=== PATIENT | male | born 1960 | race Caucasian/White ===

== ENCOUNTER 2022-01-15 09:41 | Inpatient (IN) ==
[2022-01-15] MEDS ORDERED: NITROGLYCERIN SL 0.4 MG TABLET SL ONE (09:55)
[2022-01-15] MEDS ORDERED: ASPIRIN 325 MG TABLET ONE (09:57)
[2022-01-15] MEDS ORDERED: ASPIRIN 325 MG TABLET PO STA (09:58)
[2022-01-15] MEDS ORDERED: HEPARIN 5,000 UNIT/1 ML VIAL IV ONE (09:58)
[2022-01-15] MEDS ORDERED: HEPARIN 5,000 UNIT/1 ML VIAL ONE ×2 (09:59→10:00)
[2022-01-15] MEDS ORDERED: MORPHINE 2 MG/1 ML SYRINGE ONE (09:59)
[2022-01-15] MEDS ORDERED: NITROGLYCERIN DRIP 0 MG/0 ML BOTTLE IV ONE (10:01)
[2022-01-15] MEDS ORDERED: NITROGLYCERIN DRIP 50 MG/250 ML BOTTLE IV ONE (10:06)
[2022-01-15] MEDS ORDERED: VERAPAMIL 5 MG/2 ML VIAL ONE (10:06)
[2022-01-15] MEDS ORDERED: fentaNYL 100 MCG/2 ML VIAL ONE (10:06)
[2022-01-15] MEDS ORDERED: HEPARIN/NACL 0.9% 2 UNITS/ML 2,000 UNIT/1,000 ML BAG IV ONE (10:06)
[2022-01-15] MEDS ORDERED: MIDAZOLAM 2 MG/2 ML VIAL ONE ×2 (10:06→10:24)
[2022-01-15 10:10] LABS: Basophils % 0.6 % (0.0-0.8); Eosinophils # 0.1 10*3/uL (0.0-0.87); Eosinophils % 2.2 % (0.00-10.9); Hematocrit 54.6 VOL% (42.0-52.0); Hemoglobin 18.5 GM/DL (14.0-18.0); Immature Granulocytes % 0.3 %; Immature Granulocytes Absolute 0.01 #; Lymphocytes % 30.9 % (21.2-54.2); Mean Corpuscular HGB Conc 33.9 GM/DL (32-36); Mean Corpuscular Volume 83.6 FL (87-102); Mean Platelet Volume 11.1 FL (9.6-12.0); Monocytes # 0.4 10*3/uL (0.11-0.8); Monocytes % 11.5 % (1.7-12.7); Neutrophils % 54.5 % (38.7-73.9); Platelet Count 71 T/CUMM (130-400); Red Blood Count 6.53 MC/CUMM (3.8-5.5); Red Cell Distribution Width 18.6 % (9.3-17.3); White Blood Count 3.1 T/CUMM (4-12)
[2022-01-15] MEDS ORDERED: MAGNESIUM SULF RIDER 2 GM/50 ML PREMIX IV PRN (10:20)
[2022-01-15] MEDS ORDERED: MAGNESIUM SULF RIDER 4 GM/100 ML PREMIX IV PRN (10:20)
[2022-01-15] MEDS ORDERED: POTASSIUM CHLORIDE 20 MEQ TABLET PO PRN (10:21)
[2022-01-15] MEDS ORDERED: POTASSIUM CHLORIDE RIDER 10 MEQ/100 ML PREMIX IV PRN (10:22)
[2022-01-15 10:30] LABS: Albumin 3.9 G/DL (3.4-5.0); Bilirubin,Total 3.7 MG/DL (0.20-1.00); Calcium 9.7 MG/DL (8.5-10.1); Potassium 4.1 MMOL/L (3.5-5.1); Total Protein 7.7 G/DL (6.4-8.2)
[2022-01-15] MEDS ORDERED: MORPHINE 2 MG/1 ML SYRINGE IV STA (10:33)
[2022-01-15] MEDS ORDERED: hydrALAZINE 20 MG/1 ML VIAL ONE (10:36)
[2022-01-15 10:41] LABS: Platelet Estimate Adequate
[2022-01-15] MEDS ORDERED: NITROGLYCERIN DRIP 50 MG/250 ML BOTTLE IV PRN (10:42)
[2022-01-15 10:49] LABS: Thyroid Stimulating Hormone 1.87 uIU/ml (0.358-3.74)
[2022-01-15] MEDS ORDERED: TICAGRELOR 90 MG TABLET ONE (10:50)
[2022-01-15] MEDS ORDERED: ONDANSETRON 4 MG/2 ML VIAL IV PRN (11:11)
[2022-01-15] MEDS ORDERED: hydrALAZINE 20 MG/1 ML VIAL IV PRN (11:15)
[2022-01-15] MEDS ORDERED: MORPHINE 2 MG/1 ML SYRINGE IV PRN (11:16)
[2022-01-15] MEDS ORDERED: SODIUM CHLORIDE 0.9% 1,000 ML IV SCH (11:30)
[2022-01-15 11:33] LABS: Risk Ratio 3.5; VLDL Cholesterol 16.4 MG/DL
[2022-01-15] MEDS: VALSARTAN 80 MG TABLET PO SCH (12:01)
[2022-01-15] MEDS: METOPROLOL TARTRATE 25 MG TABLET PO SCH ×2 (12:02→22:37)
[2022-01-15 12:16] LABS: Basophils % 0.2 % (0.0-0.8); Eosinophils % 0.6 % (0.00-10.9); Hematocrit 51.5 VOL% (42.0-52.0); Hemoglobin 17.7 GM/DL (14.0-18.0); Immature Granulocytes % 1.5 %; Immature Granulocytes Absolute 0.07 #; Lymphocytes # 0.5 10*3/uL (1.4-4.0); Lymphocytes % 9.6 % (21.2-54.2); Mean Corpuscular HGB Conc 34.4 GM/DL (32-36); Mean Corpuscular Volume 83.2 FL (87-102); Mean Platelet Volume 10.7 FL (9.6-12.0); Monocytes # 0.3 10*3/uL (0.11-0.8); Neutrophils % 82.1 % (38.7-73.9); Platelet Count 66 T/CUMM (130-400); Red Blood Count 6.19 MC/CUMM (3.8-5.5); Red Cell Distribution Width 18.4 % (9.3-17.3); White Blood Count 4.8 T/CUMM (4-12)
[2022-01-15] MEDS ORDERED: VALSARTAN 80 MG TABLET PO ONE (14:29)
[2022-01-15] MEDS ORDERED: SIMVASTATIN 20 MG TABLET PO SCH (21:00)
[2022-01-15] MEDS ORDERED: ROSUVASTATIN 20 MG TABLET PO SCH (21:00)
[2022-01-15] MEDS ORDERED: ATORVASTATIN 80 MG TABLET PO SCH (21:00)
[2022-01-15] MEDS: VITAMIN E 400 UNIT CAPSULE PO SCH (21:55)
[2022-01-15] MEDS: TICAGRELOR 90 MG TABLET PO SCH (21:55)
[2022-01-15] MEDS: FAMOTIDINE 20 MG TABLET PO SCH (21:56)
[2022-01-16] MEDS: METOPROLOL TARTRATE 25 MG TABLET PO SCH ×3 (01:29→20:17)
[2022-01-16 06:33] LABS: Basophils % 0.2 % (0.0-0.8); Eosinophils # 0.1 10*3/uL (0.0-0.87); Eosinophils % 1.2 % (0.00-10.9); Hemoglobin 17.7 GM/DL (14.0-18.0); Immature Granulocytes % 0.2 %; Immature Granulocytes Absolute 0.01 #; Lymphocytes # 0.8 10*3/uL (1.4-4.0); Lymphocytes % 13.7 % (21.2-54.2); Mean Corpuscular Volume 84.3 FL (87-102); Mean Platelet Volume 10.9 FL (9.6-12.0); Monocytes # 0.7 10*3/uL (0.11-0.8); Monocytes % 12.1 % (1.7-12.7); Neutrophils % 72.6 % (38.7-73.9); Platelet Count 70 T/CUMM (130-400); Red Blood Count 6.17 MC/CUMM (3.8-5.5); Red Cell Distribution Width 18.4 % (9.3-17.3); White Blood Count 5.6 T/CUMM (4-12)
[2022-01-16 07:12] LABS: Albumin 3.6 G/DL (3.4-5.0); Bilirubin,Total 5.4 MG/DL (0.20-1.00); Osmolality,Calculated 272.8 MOS/KG (273-304); Total Protein 6.9 G/DL (6.4-8.2)
[2022-01-16 08:03] LABS: Platelet Estimate Decreased; Target Cells Slight
[2022-01-16] MEDS: VALSARTAN 80 MG TABLET PO SCH (09:06)
[2022-01-16] MEDS: FAMOTIDINE 20 MG TABLET PO SCH ×2 (09:07→20:18)
[2022-01-16] MEDS: ASPIRIN EC 81 MG TABLET PO SCH (09:08)
[2022-01-16] MEDS: EZETIMIBE 10 MG TABLET PO SCH (09:08)
[2022-01-16] MEDS: VITAMIN E 400 UNIT CAPSULE PO SCH ×2 (09:10→20:18)
[2022-01-16] MEDS: TICAGRELOR 90 MG TABLET PO SCH ×2 (09:10→20:19)
[2022-01-17 06:08] LABS: Basophils % 0.5 % (0.0-0.8); Eosinophils # 0.1 10*3/uL (0.0-0.87); Eosinophils % 2.3 % (0.00-10.9); Hemoglobin 17.3 GM/DL (14.0-18.0); Immature Granulocytes % 0.3 %; Immature Granulocytes Absolute 0.01 #; Lymphocytes # 1.2 10*3/uL (1.4-4.0); Lymphocytes % 30.7 % (21.2-54.2); Mean Corpuscular HGB Conc 33.3 GM/DL (32-36); Mean Corpuscular Volume 85.5 FL (87-102); Mean Platelet Volume 11.6 FL (9.6-12.0); Monocytes # 0.5 10*3/uL (0.11-0.8); Monocytes % 12.9 % (1.7-12.7); Neutrophils % 53.3 % (38.7-73.9); Platelet Count 69 T/CUMM (130-400); Red Blood Count 6.08 MC/CUMM (3.8-5.5); Red Cell Distribution Width 18.6 % (9.3-17.3); White Blood Count 3.9 T/CUMM (4-12)
[2022-01-17 06:27] LABS: Platelet Estimate Decreased
[2022-01-17 06:36] LABS: Albumin 3.4 G/DL (3.4-5.0); Bilirubin,Total 3.5 MG/DL (0.20-1.00); Calcium 8.6 MG/DL (8.5-10.1); Osmolality,Calculated 280.4 MOS/KG (273-304); Potassium 4.4 MMOL/L (3.5-5.1); Total Protein 6.7 G/DL (6.4-8.2)
[2022-01-17] MEDS ORDERED: ATORVASTATIN 20 MG TABLET PO SCH (09:00)
[2022-01-17] MEDS: FAMOTIDINE 20 MG TABLET PO SCH (09:24)
[2022-01-17] MEDS: ASPIRIN EC 81 MG TABLET PO SCH (09:24)
[2022-01-17] MEDS: TICAGRELOR 90 MG TABLET PO SCH (09:24)
[2022-01-17] MEDS: METOPROLOL TARTRATE 25 MG TABLET PO SCH (09:24)
[2022-01-17] MEDS: VALSARTAN 80 MG TABLET PO SCH (09:25)
[2022-01-17] MEDS: EZETIMIBE 10 MG TABLET PO SCH (09:26)
[2022-01-17] MEDS: VITAMIN E 400 UNIT CAPSULE PO SCH (09:26)
[2022-01-17 11:31] VITALS: BP 133/73
[2022-01-18] MEDS ORDERED: ATORVASTATIN 40 MG TABLET PO SCH (09:00)
== END 2022-01-17 14:42 | disposition home or self-care (01) | DRG 247 ==
LOC: N.ED 09:41 → N.ICU 10:08 → N.TELEN 01-16 11:45
PROVIDERS: ADMIT Internal Medicine Cardiovascular Disease; ATTEND Internal Medicine Cardiovascular Disease
PROC: CLCCHCL (ICD-10-PCS; 2022-01-15 10:45)